=== PATIENT | male | born 1955 | race Caucasian/White ===

== ENCOUNTER 2016-06-12 14:59 | Emergency (ER) | payer BC ==
[2016-06-12 19:02] LABS: RED BLOOD COUNT 4.8 M/UL (4.20-5.50); WHITE BLOOD COUNT 18.4 K/UL (4.5-11.0)
[2016-06-12 19:20] LABS: BUN/CREATININE RATIO 16 (0-10)
[2016-08-09] MEDS ORDERED: NEXIUM40 MG PO (07:57)
[2016-08-09] MEDS ORDERED: XALATAN OP SOL2.5 ML OP (07:58)
[2016-08-09] MEDS ORDERED: FISH OIL 1,0001 EACH PO (07:58)
[2016-08-09] MEDS ORDERED: VISION VITAMIN1 EACH PO (07:58)
[2016-08-09] MEDS ORDERED: TIMOPTIC5 M1 OP (07:59)
[2016-08-09] MEDS ORDERED: TRUSOPT 2% OP S10 ML OU (08:00)
[2016-08-09] MEDS ORDERED: CYCLOGYL 1% OP (08:00)
== END 2016-06-12 23:45 | disposition home or self-care (01) ==
LOC: ER1 14:59
PROVIDERS: Emergency Medicine
DX: R07.89 Other chest pain (principal); D72.829 Elevated white blood cell count, unspecified
CPT/HCPCS: 36415; 71010; 80053; 82550; 82553; 83690; 83874; 83880; 84484; 85025; 85379; 93005; 99285; J7050; Q9963

== ENCOUNTER → 2016-08-09 | Day surgery (SDC) | payer BC ==
[~2016-08-09] MED LIST: CYCLOGYL 1% OP; FISH OIL 1,0001 EACH PO; NEXIUM40 MG PO; TIMOPTIC5 M1 OP; TRUSOPT 2% OP S10 ML OU; VISION VITAMIN1 EACH PO; XALATAN OP SOL2.5 ML OP
== END | disposition home or self-care (01) ==
LOC: OR 07:06
PROVIDERS: Internal Medicine Gastroenterology
PROC: 0DB78ZX Excision of Stomach, Pylorus, Via Natural or Artificial Opening Endoscopic, Diagnostic (ICD-10-PCS; principal; 2016-08-09 09:30)
DX: K29.50 Unspecified chronic gastritis without bleeding (principal); B96.81 Helicobacter pylori [H. pylori] as the cause of diseases classified elsewhere; K21.0 Gastro-esophageal reflux disease with esophagitis; M17.10 Unilateral primary osteoarthritis, unspecified knee; E66.9 Obesity, unspecified; Z68.38 Body mass index [BMI] 38.0-38.9, adult; Z79.899 Other long term (current) drug therapy
CPT/HCPCS: J2250; J3010; J7030